=== PATIENT | male | born 1980 | race Caucasian/White ===

== ENCOUNTER 2019-12-15 00:15 | Inpatient (IN) | payer OTHER, SELFPAY ==
[~2019-12-15] VITALS: Ht 180.3 cm; Wt 87.5 kg
--- NOTE | 2019-12-15 00:18 | NUR ---
PT BIBA BLS. AMBULATED WITHOUT ASSISTANCE TO ER BED 5
[2019-12-15 00:21] VITALS: BP 136/104
--- NOTE | 2019-12-15 00:25 | NUR ---
[place] [employer] AT BEDSIDE
--- NOTE | 2019-12-15 00:30 | NUR ---
Patient is a 39-year-old male with a history of methamphetamine abuse, bipolar disease the presents emergency department because of suicidal ideation. Symptoms are 1 week ago when his and children left him. Patient denies plan. Patient denies homicidal ideations. Patient denies visual or auditory hallucinations. Patient has been to [facility] facility in the past. ALLERGY: NKDA PMH: BIPOLAR DISORDER []
[2019-12-15 00:52] LABS: BASOPHILS # (AUTO) 0.1 K/uL (0.00-0.22); BASOPHILS % (AUTO) 0.5 % (0.0-2.0); EOSINOPHILS # (AUTO) 0.1 K/uL (0-0.4); EOSINOPHILS % (AUTO) 0.5 % (0.0-4.0); HEMATOCRIT 45.2 % (36-52); HEMOGLOBIN 15.3 g/dL (12.0-18.0); LYMPHOCYTES # (AUTO) 3.3 K/uL (2.0-11.5); LYMPHOCYTES % (AUTO) 21.6 % (20.5-51.1); MEAN CORPUSCULAR HEMOGLOBIN 31 pg (27-31); MEAN CORPUSCULAR HGB CONC 34 g/dL (33-37); MEAN CORPUSCULAR VOLUME 90.2 fL (80-94); MONOCYTES # (AUTO) 1.2 K/uL (0.8-1.0); MONOCYTES % (AUTO) 7.6 % (1.7-9.3); NEUTROPHILS # (AUTO) 10.7 K/uL (1.8-7.7); NEUTROPHILS % (AUTO) 69.8 % (42.2-75.2); PLATELET COUNT (AUTO) 356 K/uL (140-450); RED BLOOD CELL COUNT(AUTO) 5.01 MIL/uL (4.20-6.10); RED CELL DISTRIBUTION WIDTH 13.3 % (11.6-13.7); WHITE BLOOD COUNT (AUTO) 15.3 K/uL (4.8-10.8)
[2019-12-15 01:06] LABS: ALBUMIN 4.4 g/dL (3.4-5.0); ANION GAP 14.8 (8-16); ASPARTATE AMINOTRANSFERASE 77 U/L (15-37); CARBON DIOXIDE 29.6 mmol/L (21-32); CHLORIDE 100 mmol/L (98-107); CREATININE 1.1 mg/dL (0.6-1.3); GFR ARICAN-AMERICAN 97 mL/min (>90); GLUCOSE 135 mg/dL (74-106); POTASSIUM 3.4 mmol/L (3.5-5.1); SODIUM SERUM 141 mmol/L (136-145); TOTAL BILIRUBIN 1.4 mg/dL (0.0-1.0); UREA NITROGEN, BLOOD 17 mg/dL (7-18)
--- NOTE | 2019-12-15 01:34 | NUR ---
Dr. Mcfadden examining patient.
--- NOTE | 2019-12-15 01:37 | NUR ---
Francisco bejarano in ED - 12/15/19 at [email or web address] TRIMBLE AT THE BEDSIDE ASSESSING AND EVALUATING THE PT
--- NOTE | 2019-12-15 02:30 | NUR ---
TOOK PT VITAL SIGNS. VSS, AFEBRILE, SATING 97% ON RA . NO C/O PAIN AT THIS TIME.
[2019-12-15] MEDS ORDERED: HYDROXYZINE HYDROCHLORIDE 25 MG TAB PO PRN (02:50)
--- NOTE | 2019-12-15 03:24 | NUR ---
SENT URINE SAMPLE TO THE LAB
[2019-12-15 03:50] LABS: BARBITURATE, URINE NEGATIVE ng/ml (NEG <=200); BENZODIAZEPINE, URINE NEGATIVE ng/mL (NEG <=200); CANNABINOID, URINE POSITIVE ng/mL (NEG <=50); COCAINE, URINE NEGATIVE ng/mL (NEG <=300); OPIATE, URINE NEGATIVE ng/mL (NEG <=2000); PHENCYCLIDINE SCREEN,URINE NEGATIVE ng/mL (NEG <=25)
--- NOTE | 2019-12-15 03:56 | NUR ---
PT WAS ASKING TO HAVE HIS CELLPHONE BACK. PT MADE AWARE THAT ALL HIS BELONGINGS IS WITH THE SECURITY.
--- NOTE | 2019-12-15 05:50 | NUR ---
Packet received for placement. Will endorse to AM shift to monitor documentation and check for results of Covid
--- NOTE | 2019-12-15 05:50 | NUR ---
Pt asleep at this time. Vital signs was taken earlier. VSS, afebrile, sating 100% on RA.
--- NOTE | 2019-12-15 06:29 | NUR ---
TOOK SPECIMEN FOR NOVEL GA VIRUS TO THE LAB ORDERED.
--- NOTE | 2019-12-15 06:52 | NUR ---
[facility] day shift to continue actively looking for placement for this pt. Will followup with potential facilities today. Will contact with any updates. No openings per night court magistrate report.
--- NOTE | 2019-12-15 07:33 | NUR ---
BREAKFAST TRAY GIVEN TO PT. PT IS EATING AT THIS TIME.
--- NOTE | 2019-12-15 07:35 | NUR ---
PT STABLE.ENDORSED PT TO HERLINDA GALE FOR CONTINUITY OF CARE. SIGNING OFF.
--- NOTE | 2019-12-15 08:20 | NUR ---
PT SLEEPING IN BED AT THIS TIME. EASILY AROUSEABLE TO VOICE. VSS. SIDE RAILS UP AND BED IN LOWEST POSITION. WILL CONTINUE TO MONITOR.
[2019-12-15] MEDS ORDERED: HYDROcodone/APAP 5/325 MG 1 TAB TAB PO PRN (08:45)
[2019-12-15] MEDS ORDERED: LORazepam 2 MG/ML VIAL IVP PRN (08:45)
[2019-12-15] MEDS ORDERED: MORPHINE SULFATE 4 MG/ML SYR IVP PRN (08:45)
[2019-12-15] MEDS ORDERED: ONDANSETRON 4 MG/2 ML VIAL IVP PRN (08:45)
[2019-12-15] MEDS ORDERED: ACETAMINOPHEN 325 MG TAB PO PRN (08:45)
--- NOTE | 2019-12-15 09:48 | NUR ---
pt ambulated to restroom
--- NOTE | 2019-12-15 11:34 | NUR ---
pt awake and alert in bed at this time. vss.
--- NOTE | 2019-12-15 11:51 | NUR ---
pt received lunch tray. sitting upright and eating at this time.
--- NOTE | 2019-12-15 13:56 | NUR ---
PT LAYING IN BED AWAKE AND ALERT. VSS. ALL NEEDS MET AT THIS TIME. BEDRAILS UP AND BED IN LOWEST POSITION.
--- NOTE | 2019-12-15 15:37 | NUR ---
PT SLEEPING IN BED. EASILY AROUSEABLE TO VOICE. VSS. BEDRAILS UP AND BED IN LOWEST POSITION. WILL CONTINUE TO MONITOR.
--- NOTE | 2019-12-15 17:50 | NUR ---
PT SITTING UP IN BED EATING DINNER AT THIS TIME.
[2019-12-15 19:15] VITALS: BP_SYST 120; BP_SYST 122; BP_DIAS 75; BP_DIAS 82
--- NOTE | 2019-12-15 19:15 | NUR ---
RECEIVED PT AAOX4 , FRM ER , NO IV ACESS - PER ER NURSE PT REFUSED FOR IV INSERTION . ADM . ASSESSMENT - DONE - ON 5150 - HOLD - PROVIDE 1:1 SITTER . POC DISCUSSED AND VERBALIZED UNDERSTANDING . WILL CONT. TO MONITOR .
--- NOTE | 2019-12-15 19:20 | NUR ---
. Will go to room[110 b]. Belongings list completed. Report to . Addendum: 12/15/19 at 1928 by PERNELL REPORT GIVEN TO OSKAR, 110 B
--- NOTE | 2019-12-15 21:15 | NUR ---
[facility] still aware of patient. Pending Covid results before placement
[2019-12-16] VITALS: BP 120/75
--- NOTE | 2019-12-16 | NUR ---
NO COMPLAIN MADE - 0N 1 :1 SITTER .
--- NOTE | 2019-12-16 06:00 | NUR ---
NO COMPLAIN MADE . ON 1:1 SITTER .
[2019-12-16 06:46] LABS: BASOPHILS # (AUTO) 0.1 K/uL (0.00-0.22); EOSINOPHILS # (AUTO) 0.3 K/uL (0-0.4); HEMATOCRIT 45.1 % (36-52); HEMOGLOBIN 15.5 g/dL (12.0-18.0); LYMPHOCYTES # (AUTO) 3.2 K/uL (2.0-11.5); LYMPHOCYTES % (AUTO) 37.6 % (20.5-51.1); MEAN CORPUSCULAR HEMOGLOBIN 31 pg (27-31); MEAN CORPUSCULAR HGB CONC 34 g/dL (33-37); MEAN CORPUSCULAR VOLUME 89.6 fL (80-94); MONOCYTES # (AUTO) 0.7 K/uL (0.8-1.0); MONOCYTES % (AUTO) 8.3 % (1.7-9.3); NEUTROPHILS # (AUTO) 4.1 K/uL (1.8-7.7); NEUTROPHILS % (AUTO) 49.1 % (42.2-75.2); PLATELET COUNT (AUTO) 345 K/uL (140-450); RED BLOOD CELL COUNT(AUTO) 5.04 MIL/uL (4.20-6.10); WHITE BLOOD COUNT (AUTO) 8.4 K/uL (4.8-10.8)
[2019-12-16 07:10] LABS: ALBUMIN 3.7 g/dL (3.4-5.0); ANION GAP 11.5 (8-16); CARBON DIOXIDE 31.1 mmol/L (21-32); MAGNESIUM 2.2 mg/dL (1.8-2.4); POTASSIUM 3.6 mmol/L (3.5-5.1)
--- NOTE | 2019-12-16 07:10 | NUR ---
RECEIVED REPORT FROM NIGHT NURSE FOR CONTINUITY OF CARE, PT IS STABLE, PT IS ASLEEP, NO SIGNS OF DISTRESS NOTED, RESPIRATIONS ARE EVEN AND UNLABORED ON ROOM AIR, NO IV ACCESS, PT AMBULATORY, WILL INTRODUCE SELF, PT ON 5150 SITTER BY DOOR, BED N LOW POSITION, SAFETY MEASURES IN PLACE, ALL NEEDS MET, WILL CONTINUE TO MONITOR.
--- NOTE | 2019-12-16 07:10 | NUR ---
ENDORSED TO AM SHIFT - PT - STABLE , ON 1: 1 SITTER .
--- NOTE | 2019-12-16 07:28 | NUR ---
[facility] day shift is aware of patient and will assist with bed placement. Patient is currently pending COVID PCR result. Call Center will continue to monitor ED notes and labs during shift.
[2019-12-16 08:00] VITALS: BP 118/70
--- NOTE | 2019-12-16 08:30 | NUR ---
PT ASLEEP IN BED, NO SIGNS OF DISTRESS NOTED, RESPIRATIONS ARE EVEN AND UNLABORED ON ROOM AIR, SITTER AT DOOR.
--- NOTE | 2019-12-16 08:48 | NUR ---
PATIENT HAS BEEN SCREENED AND CATEGORIZED MODERATE NUTRITION RISK. PATIENT WILL BE SEEN WITHIN 3-5 DAYS OF ADMISSION. 12/18/2019-12/20/[address]
--- NOTE | 2019-12-16 11:04 | NUR ---
PROVIDED PT WITH RESOURCES FOR SUBSTANCE ABUSE AND BEHAVIORAL HEALTH, PT VERBALIZED UNDERSTANDING, PT IS STABLE, NO SIGNS OF DISTRESS NOTED, SITTER AT BEDSIDE.
--- NOTE | 2019-12-16 13:33 | NUR ---
PT ASLEEP IN BED, NO SIGNS OF DISTRESS NOTED, RESPIRATIONS ARE EVEN AND UNLABORED ON ROOM AIR, SAFETY MEASURES IN PLACE, SITTER OUTSIDE THE DOOR, WILL CONTINUE TO MONITOR.
--- NOTE | 2019-12-16 13:34 | NUR ---
PT HAS ANKLE MONITORING BRACELET.
--- NOTE | 2019-12-16 15:00 | NUR ---
PT RESTING IN BED, NO SIGNS OF DISTRESS NOTED, PT IS STABLE, SITTER BY BEDSIDE
[2019-12-16 16:00] VITALS: BP 94/57
--- NOTE | 2019-12-16 17:00 | NUR ---
PT RESTING IN BED, NO SIGNS OF DISTRESS NOTED, RESPIRATIONS ARE EVEN AND UNLABORED ON ROOM AIR, CALL LIGHT WITHIN REACH.
--- NOTE | 2019-12-16 19:20 | NUR ---
ENDORSE PT TO NIGHT NURSE PT FOR CONTINUITY OF CARE, PT IS STABLE
--- NOTE | 2019-12-16 19:25 | NUR ---
RECEIVED BEDSIDE REPORT FROM AM NURSE. AAOX4, AMBULATORY. SITTER AT BEDSIDE. PT RESTING COMFORTABLY IN BED, NO SOB, RESPIRATIONS EVEN AND UNLABORED, ON ROOM AIR. DENIES PAIN/DISCOMFORT AT THIS TIME. SKIN INTACT AND WARM TO TOUCH. NO IV ACCESS NOTED. SAFETY MEASURES IN PLACED. CALL LIGHT WITHIN REACH. WILL CONTINUE TO MONITOR.
[2019-12-16] MEDS ORDERED: LORazepam 1 MG TAB PO PRN (20:40)
--- NOTE | 2019-12-16 21:17 | NUR ---
[facility] still aware of patient. Covid results still pending. Will seek placement upon results of Covid
--- NOTE | 2019-12-16 21:30 | NUR ---
PT IN BED RESTING QUIETLY, NO SOB, DENIES ANY PAIN OR DISCOMFORT. NO REQUESTS MADE AT THIS TIME. SITTER AT BEDSIDE. SAFETY MEASURES IN PLACED. CALL LIGHT WITHIN REACH. WILL CONTINUE TO MONITOR.
[2019-12-16] MEDS: OLANZapine 5 MG TAB PO SCH (21:34)
--- NOTE | 2019-12-16 23:30 | NUR ---
ROUNDS DONE, PT ASLEEP IN BED COMFORTABLY. NOT IN DISTRESS. NO SOB. SAFETY MEASURES IN PLACED. SITTER BY THE DOOR. CALL LIGHT WITHIN REACH. WILL CONTINUE TO MONITOR.
[2019-12-16 23:45] VITALS: BP 117/63
--- NOTE | 2019-12-17 01:30 | NUR ---
PT STILL SLEEPING COMFORTABLY IN BED. SITTER BY THE DOOR. WILL CONTINUE TO MONITOR.
--- NOTE | 2019-12-17 03:30 | NUR ---
CHECKED ON PT, SEEN SLEEPING COMFORTABLY IN BED. NO SOB, NO DISTRESS NOTED. 1:1 SITTER AT BEDSIDE. SAFETY MEASURES IN PLACED. CALL LIGHT WITHIN REACH. WILL CONTINUE TO MONITOR.
--- NOTE | 2019-12-17 05:30 | NUR ---
ROUNDS DONE. PT STILL ASLEEP ON BED. NO DISTRESS NOTED. 1:1 SITTER IN ATTENDANCE. SAFETY MEASURES IN PLACED. CALL LIGHT IN REACH. WILL CONTINUE TO MONITOR.
--- NOTE | 2019-12-17 07:18 | NUR ---
ENDORSED PT IN STABLE CONDITION TO AM NURSE.
--- NOTE | 2019-12-17 07:19 | NUR ---
RECEIVED REPORT FROM PM RN, MARY KAY. PT C/O: SI, DX: SI, 51/50. MAJOR LIFE EVENT: DIVORCE, EX HAS CUSTODY OF CHILDREN. HX: SUBSTANCE ABUSE: AMPHETAMINES, TCH, BIPOLAR. NKA. DROPLET PRECAUTIONS TO R/O COVID 19. NO IV ACCESS. REGULAR DIET. SKIN IS INTACT. PT IS ON RA. PT IS HOMELESS. PLAN: TRANSFER TO PSYCH FACILITY, R/O COVID, F/U WITH DR WETZEL.
[2019-12-17 08:00] VITALS: BP 122/70
--- NOTE | 2019-12-17 09:00 | NUR ---
PT IS RESTING IN BED. RESPIRATIONS ARE EVEN AND UNLABORED.
--- NOTE | 2019-12-17 10:07 | NUR ---
DISCHARGE PLANNING: ROJAS CONTACTED HOLLY FROM [facility] [phone] TO CONFIRM 5150 AND CLINICALS WERE RECEIVED. HOLLY STATED SHE RECEIVED CLINICALS AND IS CONTINUING SEEKING PLACEMENT. HOLLY STATED SHE WOULD INPUT DOCUMENTATION ON FACILITIES THAT SHE HAS ATTEMPTED. Addendum: 12/17/19 at 1009 by Yonathan SALAS HOLLY ALSO STATED THAT SHE IS AWAITING PENDING COVID RESULTS FOR PATIENT TO FAX OUT. Addendum: 12/17/19 at 1613 by Yonathan SALAS ROJAS CONTACTED [facility] TO FOLLOW UP ON PLACEMENT FOR PATIENT [phone]. PER HOLLY, SHE HAS FAXED TO FACILITIES FOR PLACEMENT BUT THERE WAS NO BED AVAILABILITY. ROJAS WILL FOLLOW UP.
--- NOTE | 2019-12-17 11:37 | NUR ---
BUCKET HOOKER NOTE: Patient's Orientation Person Situation Place Time Information Provided By PATIENT Comments SW MET WITH PATIENT AT BEDSIDE TO COMPLETE ASSESSMENT. PATIENT'S AFFECT WAS LETHARGIC. Microbiology Lab Manager, Realtionship and Phone Number [facility] [phone] Healthcare Power of Pathology Specialist No Does Patient Have a POLST No Identifying Problems Mental Health Is A Social Work Consult Needed No Mandate Report Filed No Explanation Of Identifying Problems PATIENT IS A 39-YEAR-OLD MALE ADMITTED FOR 5150 SUICIDAL IDEATION. PATIENT REPORTED NO HISTORY OF MENTAL HEALTH. DURING ASSESSMENT, PATIENT STATED THAT HE HAD A SUICIDE ATTEMPT THROUGH CUTTING ARMS. PATIENT DENIED AUDITORY HALLUCINATIONS, VISUAL HALLUCINATIONS, SUICIDAL IDEATIONS, AND HOMICIDAL IDEATIONS. PATIENT REPORTED HISTORY OF MENTAL HEALTH WITH DIAGNOSES OF DEPRESSION AND BIPOLAR DISORDER. PATIENT STATED HE DOES NOT TAKE MEDICATION. PATIENT REFUSED MENTAL HEALTH RESOURCES. PATIENT STATED HE USES METHAMPHETAMINES DAILY. PATIENT REFUSED SUBSTANCE ABUSE RESOURCES. PATIENT DENIED SI/HI AND AH/VH. PATIENT REPORTED THAT HE LIVES WITH HIS AND REITERATED THAT HE IS NOT HOMELESS. Admitted From Home Pre-Admission Level Of Functioning Status Independent/Ambulatory Prior Resources/Services Used In Last 12 Months No Prior Resources Used Prior DME No Prior DME Used Living Situation Lives With Family House Patient Had Caregiver No Home Support No Caregiver Issues Financial Issues No Known Financial Issue Referral To The Financial Counselor Needed No Factors/Needs No D/C Needs Identified Pt/Rep Participated In Discharge Plan Yes Patient/Family Agress With Discharge Plan Yes Discharge Plan Comments TENTATIVE DISCHARGE PLAN IS FOR PATIENT TO BE DISCHARGED TO PSYCHIATRIC FACILITY. DC Plan Status Initiated
--- NOTE | 2019-12-17 12:00 | NUR ---
PT IS RESTING IN BED. PT DENIES PAIN. PT IS AWARE THAT HE IS AT [facility]. WILL CONTINUE TO MONITOR.
--- NOTE | 2019-12-17 14:42 | NUR ---
Spoke with [facility] confirming still monitoring and sending intake to facilities for bed placement. The following facilities have been reached and will review. [facility]/ [facility]/ [facility]/ [facility] all with the understanding that Covid is still pending. Once results have been received we can also send out to [facility]. Will keep facility informed of any updates
--- NOTE | 2019-12-17 15:54 | NUR ---
PT RESTING IN BED. RESPIRATIONS ARE EVEN AND UNLABORED. PT DENIES PAIN.
[2019-12-17 16:00] VITALS: BP 111/67
--- NOTE | 2019-12-17 19:17 | NUR ---
SPOKE WITH ELECTRICAL ENGINEERING TEACHER 3 TIMES TODAY TO FOLLOW UP WITH PT'S COVID PCR RESULT. STILL AWAITNG FOR CALL BACK.
--- NOTE | 2019-12-17 19:20 | NUR ---
transfer of care to pm rnravi. pt is resting in bed. no signs of distress. vs stable
--- NOTE | 2019-12-17 19:24 | NUR ---
RECEIVED PT IN STABLE CONDITION FROM AM NURSE. AWAKE,ALERT AND ORIENTED X4. MED SURG PT . WITH 1:1 SITTER IN ATTENDANCE FOR SAFETY MEASURES. NO C/O ANY DISCOMFORT NOTED. AMBULATORY TO BATHROOM. NO IV ACCESS ,FOR PT REFUSED. STILL WAITING FOR RESULT OF COVID-19 TEST,STILL PENDING. PLAN OF CARE DISCUSSED. VERBALIZED UNDERSTANDING. BED ON LOW POSITION. SIDE RAILS UP X2/ WILL CONTINUE TO MONITOR CLOSELY.
[2019-12-17] MEDS: OLANZapine 5 MG TAB PO SCH (21:07)
--- NOTE | 2019-12-17 21:07 | NUR ---
PT STILL AWAKE,SITTING ON THE SIDE OF THE BED. DUE ZYPREXA PO GIVEN. NO C/O ANY DISCOMFORT NOTED.
--- NOTE | 2019-12-17 23:00 | NUR ---
CHECKED ON PT. SLEEPING . NO S/S OF ANY DISCOMFORT NOTED. WILL CONTINUE TO MONITOR 1:1 SITTER IN ATTENDANCE.
[2019-12-18] VITALS: BP 98/54
--- NOTE | 2019-12-18 02:00 | NUR ---
CHECKED ON PT. SLEEPING WELL. WITH NO S/S OF ANY DISCOMFORT NOTED. 1;1 SITTER IN ATTENDANCE. WILL CONTINUE TO MONITOR.
--- NOTE | 2019-12-18 04:30 | NUR ---
CHECKED ON PT. SLEEPING. NO S/S OF ANY DISCOMFORT NOTED.
--- NOTE | 2019-12-18 07:30 | NUR ---
ENDORSED PT IN STABLE CONDITION TO AM NURSE.
[2019-12-18 08:00] VITALS: BP 120/64
[2019-12-18] MEDS ORDERED: ESCITALOPRAM 20 MG TAB PO SCH (09:00)
[2019-12-18 14:09] VITALS: BP 120/64
--- NOTE | 2019-12-18 17:20 | NUR ---
DISCHARGE INSTRUCTIONS PROVIDED TO PATIENT, VERBALIZED UNDERSTANDING. DISCHARGE PRESCRIPTIONS PROVIDED, INFORMED PRESCRIPTION IS GOOD FOR TWO WEEKS, SO NEED TO FOLLOW UP WITH PSYCHIATRIST. PATIENT ACCOMPANIED BY STAFF TO LOBBY WHERE WAITING TO PICK HIM UP.
== END 2019-12-18 17:20 | disposition home or self-care (01) | DRG 756 ==
LOC: MED 00:15 → MMU 08:45 → MTU 18:48
PROVIDERS: ADMIT Hospitalist; ATTEND Hospitalist
DX: R45.851 Suicidal ideations (principal); F33.2 Major depressive disorder, recurrent severe without psychotic features; Z20.828 Contact with and (suspected) exposure to other viral communicable diseases; F15.10 Other stimulant abuse, uncomplicated; F17.210 Nicotine dependence, cigarettes, uncomplicated; F12.10 Cannabis abuse, uncomplicated; R74.0 Nonspecific elevation of levels of transaminase and lactic acid dehydrogenase [LDH]; D72.829 Elevated white blood cell count, unspecified; Z91.5 Personal history of self-harm; Z59.0 Homelessness
CPT/HCPCS: 36415; 80053; 80305; 83735; 85025; 87081; 99291; G0482; U0003-CS

== ENCOUNTER 2019-12-29 22:21 | Emergency (ER) | payer OTHER, SELFPAY ==
[~2019-12-29] VITALS: Ht 180.3 cm; Wt 90.3 kg
[2019-12-29 22:30] VITALS: BP 150/100
--- NOTE | 2019-12-29 22:35 | NUR ---
pt taken to er bed 04
--- NOTE | 2019-12-29 22:40 | NUR ---
39 Y/O MALE PRESENTS TO ER WITH C/O ANXIETY X 1 DAY. 0/10 PAIN VERBALIZED. PT STATES HE USED METH YESTERDAY, AND HAS BEEN FEELING "PARANOID, AND ANXIOUS" SINCE YESTERDAY. LAST METH USAGE X 2 MONTHS AGO. DENIES NAUSEA, VOMITING, DIARRHEA, SOB, COUGH, HEADACHE, PALPITATIONS, CHEST PAIN, FEVER. A&OX4, VSS, R/R EQUAL, AND UNLABORED. SIDE RAIL X1, BED IN LOW POSITION, WILL CONTINUE TO MONITOR. NKDA DENIES PMH
[2019-12-29] MEDS: LORazepam 1 MG TAB PO ONE (22:52)
--- NOTE | 2019-12-29 23:34 | NUR ---
PT APPEARS TO BE SLEEPING IN BED. CHEST RISES AND FALLS SYMETRICALLY. R/R EQUAL, AND UNLABORED. VSS. SIDE RAIL X1, BED IN LOW POSITION, WILL CONTINUE TO MONITOR.
--- NOTE | 2019-12-30 00:39 | NUR ---
PT RESTING IN BED. HE STATES "I FEEL BETTER, I FEEL CALM NOW". CHEST RISES AND FALLS SYMETRICALLY. R/R EQUAL, AND UNLABORED. VSS. SIDE RAIL X1, BED IN LOW POSITION, WILL CONTINUE TO MONITOR.
[2019-12-30 01:40] VITALS: BP 150/100
== END 2019-12-30 01:32 | disposition home or self-care (01) ==
LOC: MED 22:21
DX: F15.10 Other stimulant abuse, uncomplicated (principal); F22 Delusional disorders; F41.1 Generalized anxiety disorder
CPT/HCPCS: 99283